=== PATIENT | female | born 1970 | race Caucasian/White ===

== ENCOUNTER 2023-11-12 18:45 | Emergency (ER) | payer BC ==
[2023-11-12 20:42] LABS: #Eosinphils 0.2 10x3/uL (0.0-0.5); #Monocytes 0.8 10x3/uL (0.0-1.1); %Basophils 0.4 % (0.0-2.0); %Eosinophils 2.4 % (0.0-6.0); %Lymphocytes 28.4 % (18.0-47.0); %Monocytes 8.3 % (0.0-10.0); %Neutrophils 60.3 % (40.0-75.0); Hematocrit 41.9 % (34.9-44.5); Hemoglobin 13.5 g/dL (12.0-15.5); Mean Corpuscular HGB CONC 32.2 g/dL (32.0-36.0); Mean Corpuscular Hemoglobin 29.5 pg (27.0-33.0); Mean Corpuscular Volume 91.5 fl (81.6-98.3); Mean Platelet Volume 10.4 fl (7.4-10.4); Platelet Count 261 10x3/uL (150-450); RBC Distribution Width 13.6 % (11.5-14.5); Red Blood Cell (RBC) Count 4.58 10x6/uL (3.90-5.03)
[2023-11-12] MEDS ORDERED: diphenhydrAMINE 25 MG CAP ONE (20:54)
[2023-11-12] MEDS ORDERED: predniSONE 20 MG TAB ONE (20:54)
[2023-11-12] MEDS ORDERED: Famotidine 20 MG TAB ONE (20:55)
[2023-11-12 21:04] LABS: ALT (SGPT) 41 U/L (8-55); AST (SGOT) 23 U/L (5-34); Albumin 3.8 g/dL (3.5-5.0); Alkaline Phosphatase 88 U/L (40-110); Anion Gap 13 mmol/L (10-20); BUN (Urea Nitrogen) 18 mg/dL (9.8-20.1); Bilirubin, Total Less than 0.2 mg/dL (0.2-1.2); Calc. Creatinine Clearance 0 mL/min (70-130); Calcium 8.5 mg/dL (7.8-10.44); Carbon Dioxide 23 mmol/L (22-29); Chloride 107 mmol/L (98-107); Estimated GFR 64; Globulin 2.4 g/dL (2.4-3.5); Glucose 145 mg/dL (70-105); Potassium 4.3 mmol/L (3.5-5.1); Protein, Total 6.2 g/dL (6.0-8.3); Sodium 139 mmol/L (136-145)
[2023-11-12 21:10] LABS: Troponin I Less than 0.010 ng/mL (< 0.028)
== END 2023-11-12 21:59 | disposition home or self-care (01) ==
LOC: CSHERS 18:45
DX: K12.2 Cellulitis and abscess of mouth (principal)
CPT/HCPCS: 36415; 71045; 80053; 84484; 85025; 93005; 93010; J7512

== ENCOUNTER 2023-11-18 17:09 | Emergency (ER) | payer BC ==
[2023-11-18] MEDS ORDERED: Ketorolac Tromethamine 30 MG (1 mL) VIAL ONE (18:47)
== END 2023-11-18 19:02 | disposition home or self-care (01) ==
LOC: CSHERS 17:09
DX: S09.90XA Unspecified injury of head, initial encounter (principal); W18.00XA Striking against unspecified object with subsequent fall, initial encounter
CPT/HCPCS: 70450; 96372; J1885

== ENCOUNTER 2023-11-21 11:36 | Emergency (ER) | payer BC ==
[2023-11-21 12:39] LABS: #Basophils 0.1 10x3/uL (0.0-0.2); #Eosinphils 0.3 10x3/uL (0.0-0.5); #Monocytes 0.9 10x3/uL (0.0-1.1); #Neutrophils 6.3 10x3/uL (1.5-8.4); %Basophils 0.5 % (0.0-2.0); %Eosinophils 2.8 % (0.0-6.0); %Lymphocytes 30.6 % (18.0-47.0); %Monocytes 7.9 % (0.0-10.0); %Neutrophils 57.4 % (40.0-75.0); Hematocrit 35.2 % (34.9-44.5); Hemoglobin 12.1 g/dL (12.0-15.5); Mean Corpuscular HGB CONC 34.4 g/dL (32.0-36.0); Mean Corpuscular Hemoglobin 30.2 pg (27.0-33.0); Mean Corpuscular Volume 87.8 fl (81.6-98.3); Mean Platelet Volume 10.7 fl (7.4-10.4); Platelet Count 257 10x3/uL (150-450); RBC Distribution Width 13.6 % (11.5-14.5); Red Blood Cell (RBC) Count 4.01 10x6/uL (3.90-5.03)
[2023-11-21 12:48] LABS: ALT (SGPT) 53 U/L (8-55); AST (SGOT) 22 U/L (5-34); Albumin 3.6 g/dL (3.5-5.0); Alkaline Phosphatase 126 U/L (40-110); Anion Gap 13 mmol/L (10-20); BUN (Urea Nitrogen) 26 mg/dL (9.8-20.1); Bilirubin, Total 0.2 mg/dL (0.2-1.2); Calc. Creatinine Clearance 0 mL/min (70-130); Calcium 8.4 mg/dL (7.8-10.44); Carbon Dioxide 26 mmol/L (22-29); Chloride 99 mmol/L (98-107); Estimated GFR 59; Globulin 2.1 g/dL (2.4-3.5); Glucose 350 mg/dL (70-105); Potassium 4.9 mmol/L (3.5-5.1); Protein, Total 5.7 g/dL (6.0-8.3); Sodium 133 mmol/L (136-145)
[2023-11-21 12:54] LABS: Troponin I Less than 0.010 ng/mL (< 0.028)
[2023-11-21] MEDS ORDERED: Acetaminophen 500 MG TAB ONE (13:53)
[2023-11-21] MEDS ORDERED: Ketorolac Tromethamine 30 MG (1 mL) VIAL ONE (13:53)
== END 2023-11-21 15:25 | disposition home or self-care (01) ==
LOC: CSHERS 11:36
DX: R73.9 Hyperglycemia, unspecified (principal); Z76.0 Encounter for issue of repeat prescription; R94.4 Abnormal results of kidney function studies
CPT/HCPCS: 36416; 71045; 80053; 82010; 84484; 85025; 93005; 96361; 96374; J1885

== ENCOUNTER 2023-11-22 02:43 | Emergency (ER) | payer BC | END 2023-11-22 05:16 | disposition home or self-care (01) | LOC: CSHERS 02:43 | DX: Z71.1 Person with feared health complaint in whom no diagnosis is made (principal); E11.9 Type 2 diabetes mellitus without complications; Z79.84 Long term (current) use of oral hypoglycemic drugs | CPT/HCPCS: 99284 ==